=== PATIENT | female | born 1955 | race Two or more races ===

== ENCOUNTER 2020-07-13 05:00 | Day surgery (SDC) | payer OTHER ==
[~2020-07-13 05:00] MED LIST: CARAFATE1 GM PO; EVISTA60 MG PO; PROTONIX20 MG PO; SIMVASTATIN20 MG PO; SYNTHROID112 MCG PO
== END 2020-07-13 11:16 | disposition home or self-care (01) ==
LOC: CIR.AMB 05:00
PROVIDERS: ATTEND Specialist
DX: D17.1 Benign lipomatous neoplasm of skin and subcutaneous tissue of trunk (principal); Z20.828 Contact with and (suspected) exposure to other viral communicable diseases

== ENCOUNTER 2020-09-05 07:15 | Outpatient (CLI) | payer OTHER | END 2020-09-05 09:27 | disposition home or self-care (01) | LOC: TOM 07:15 | PROVIDERS: ATTEND Internal Medicine Gastroenterology | DX: K57.90 Diverticulosis of intestine, part unspecified, without perforation or abscess without bleeding (principal); K56.600 Partial intestinal obstruction, unspecified as to cause ==

== ENCOUNTER 2021-02-08 07:49 | Outpatient (CLI) | payer OTHER | END 2021-02-08 08:17 | disposition home or self-care (01) | LOC: TOM 07:49 | PROVIDERS: ATTEND Specialist | DX: K81.1 Chronic cholecystitis (principal) | CPT/HCPCS: 74160; Q9965 ==

== ENCOUNTER 2021-07-02 11:59 | Outpatient (CLI) | payer OTHER | END 2021-07-06 12:09 | disposition home or self-care (01) | LOC: RAD 11:59 | PROVIDERS: ATTEND Surgery | DX: K81.1 Chronic cholecystitis (principal); K64.8 Other hemorrhoids; K59.4 Anal spasm ==

== ENCOUNTER 2021-09-25 06:23 | Outpatient (CLI) | payer OTHER | END 2021-09-25 06:24 | disposition home or self-care (01) | LOC: LAB 06:23 | PROVIDERS: ATTEND Internal Medicine Hematology & Oncology | DX: D72.818 Other decreased white blood cell count (principal); D69.49 Other primary thrombocytopenia; D51.3 Other dietary vitamin B12 deficiency anemia; E78.2 Mixed hyperlipidemia; E03.8 Other specified hypothyroidism; I32 Pericarditis in diseases classified elsewhere; B96.81 Helicobacter pylori [H. pylori] as the cause of diseases classified elsewhere ==

== ENCOUNTER 2022-01-01 07:19 | Outpatient (CLI) | payer OTHER | END 2022-01-01 07:20 | disposition home or self-care (01) | LOC: NUCLEAR 07:19 | PROVIDERS: ATTEND Internal Medicine Cardiovascular Disease | DX: I25.10 Atherosclerotic heart disease of native coronary artery without angina pectoris (principal) | CPT/HCPCS: 78452; 93017; A9500; J0153 ==

== ENCOUNTER 2022-07-01 05:17 | Day surgery (SDC) | payer OTHER ==
[~2022-07-01] VITALS: Ht 167.6 cm; Wt 78.0 kg
[~2022-07-01 05:17] MED LIST changes: +ATORVASTATIN CA40 MG PO; +CALTRATE PO; +FOSAMAX70 MG PO
[2022-07-01] MEDS ORDERED: ULTRACET PO (08:45)
[2022-07-01] MEDS ORDERED: PROTONIX40 MG PO (08:46)
[2022-07-01] MEDS ORDERED: METOCLOPRAMIDE10 MG PO (08:46)
== END 2022-07-01 11:55 | disposition home or self-care (01) ==
LOC: CIR.AMB 05:17
PROVIDERS: ATTEND Surgery
DX: K81.1 Chronic cholecystitis (principal); K81.0 Acute cholecystitis; K59.00 Constipation, unspecified; K64.8 Other hemorrhoids; E78.5 Hyperlipidemia, unspecified; E03.9 Hypothyroidism, unspecified; Z20.822 Contact with and (suspected) exposure to COVID-19

== ENCOUNTER 2024-02-24 07:05 | Outpatient (CLI) | payer OTHER ==
[~2024-02-24 07:05] MED LIST changes: +METOCLOPRAMIDE10 MG PO; +PROTONIX40 MG PO; +ULTRACET PO
== END 2024-02-24 07:06 | disposition home or self-care (01) ==
LOC: NUCLEAR 07:05
PROVIDERS: ATTEND Internal Medicine
DX: R07.9 Chest pain, unspecified (principal)
CPT/HCPCS: 78452; 93017; A9500

== ENCOUNTER 2024-08-31 10:55 | Emergency (ER) | payer OTHER ==
[~2024-08-31] VITALS: Ht 167.6 cm; Wt 79.4 kg
[2024-08-31] MEDS ORDERED: LEVALBUTEROL HCL 1.25 MG/3 ML SOLUTION IH STA (14:25)
[2024-08-31] MEDS ORDERED: BUDESONIDE 0.5 MG/2 ML AMPUL.NEB IH STA (14:25)
[2024-08-31] MEDS ORDERED: HYDROCODONE/CHLORPHEN P-STIREX 5 ML ML PO STA (14:26)
[2024-08-31] MEDS ORDERED: METHYLPREDNISOLONE SOD SUCC 125 MG VIAL IV STA (14:27)
[2024-08-31] MEDS ORDERED: METHYLPREDNISOLONE SOD SUCC 40 MG VIAL ONE (14:50)
[2024-08-31 15:24] LABS: HEMATOCRIT 41.4 % (36.0-45.00); HEMOGLOBIN 13.2 g/dL (12.0-15.00); MEAN CELL VOLUME 84.1 fL (80.00-100.00); MEAN CORPUSCULAR HEMOGLOBIN 26.8 pg (27.00-32.0); MEAN CORPUSCULAR HGB CONC 31.9 g/dl (32.0-36.0); PLATELET COUNT 177 K/uL (150-450); RED BLOOD COUNT 4.92 M/uL (4.00-6.00); RED CELL DISTRIBUTION WIDTH 17.1 % (11.5-14.5)
[2024-08-31] MEDS ORDERED: BUDESONIDE 0.5 MG/2 ML AMPUL.NEB IH ONE (17:24)
[2024-08-31] MEDS ORDERED: LEVALBUTEROL HCL 1.25 MG/3 ML SOLUTION IH ONE (17:24)
[2024-08-31] MEDS ORDERED: IPRATROPIUM/ALBUTEROL SULFATE 3 ML AMPUL.NEB IH ONE (21:20)
[2024-08-31] MEDS ORDERED: IPRATROPIUM/ALBUTEROL SULFATE 3 ML AMPUL.NEB IH SCH (22:30)
[2024-08-31] MEDS ORDERED: GILTUSS COUGH-118 M1 PO (23:48)
[2024-08-31] MEDS ORDERED: ACETAMINOPHEN500 M1 PO (23:48)
[2024-08-31] MEDS ORDERED: ZITHROMAX TRI-500 MG PO (23:48)
== END 2024-09-01 00:21 | disposition home or self-care (01) ==
LOC: ER 10:58
PROVIDERS: General Practice
DX: J06.9 Acute upper respiratory infection, unspecified (principal); R05.8 Other specified cough